=== PATIENT | female | born 1980 ===

== ENCOUNTER → 2018-04-20 12:46 | Outpatient (CLI) | payer OTHER, SELFPAY | DX: Z23 Encounter for immunization (principal) | CPT/HCPCS: 90471; 90682 ==

== ENCOUNTER → 2020-03-08 16:47 | Outpatient (CLI) | payer BC, SELFPAY ==
--- NOTE | 2020-03-08 | DI.RAD.S_ITS ---
PROCEDURE: XR HAND LT MIN 3V INDICATIONS: PERSISTANT PAIN TECHNIQUE: 3 views of the hand(s) acquired. COMPARISON: None. FINDINGS: Bones: No fractures or dislocations. Carpal bones are normally aligned. No suspicious bony lesions. Soft tissues: No suspicious soft tissue calcifications. IMPRESSION: No acute osseous abnormalities. Dictated by: Amandeep Bojorquez M.D. on 03/09/2020 at 9:43 Approved by: Amandeep Bojorquez M.D. on 03/09/2020 at 9:44
== END ==
PROVIDERS: Referring Provider Nurse Practitioner Family; Visit Provider Nurse Practitioner Family
DX: M79.642 Pain in left hand (principal)
CPT/HCPCS: 73130